=== PATIENT | male | born 1970 | race American Indian/Alaskan Native ===

== ENCOUNTER 2017-04-16 09:49 | Inpatient (IN) | payer MEDICARE, MEDICAID ==
[2017-04-16 09:50] VITALS: BMI 26.4
--- NOTE | 2017-04-16 10:20 | C.PDOC ---
History Of Present Illness 47 y/o male hx of DM, kidney disease, paracentesis, HTN and on dialysis every es.,Th, and Sat. The patient presents to the ED c/o abdominal pain, vomiting, and nausea. The denies blood in the vomit, diarrhea, dizziness, and headaches. Time Seen by Provider: 04/16/17 10:06 Chief Complaint (Nursing): Abdominal Pain History Per: Patient Onset/Duration Of Symptoms: Days Current Symptoms Are (Timing): Still Present Associated Symptoms: Vomiting. denies: Fever, Nausea, Diarrhea Recent travel outside of the [place]: No Additional History Per: Patient Past Medical History Reviewed: Historical Data, Nursing Documentation, Vital Signs Vital Signs: Last Vital Signs Temp 99.4 F 04/16/17 09:50 Pulse 79 04/16/17 10:35 Resp 18 04/16/17 10:35 BP 171/98 H 04/16/17 10:35 Pulse Ox 95 04/16/17 10:49 - Medical History PMH: Anemia, CHF, Depression, HTN, End Stage Renal Disease, Chronic Kidney Disease Denies: Kidney Stones - [facility] Procedures (03/11/17) DRAINAGE OF PERITONEAL CAVITY, PERCUTANEOUS APPROACH (03/11/17) Family History: States: No Known Family Hx - Social History Hx Alcohol Use: No Hx Substance Use: No - Immunization History Hx Tetanus Toxoid Vaccination: No Hx Influenza Vaccination: Yes (01/30) Hx Pneumococcal Vaccination: Yes (01/30) Review Of Systems Except As Marked, All Systems Reviewed And Found Negative. Constitutional: Negative for: Fever, Chills Cardiovascular: Negative for: Chest Pain Respiratory: Negative for: Cough, Shortness of Breath Gastrointestinal: Positive for: Vomiting, Abdominal Pain, Diarrhea Skin: Positive for: Other (hyperpigment scaring on the upper chest and back ). Negative for: Rash Physical Exam - Physical Exam Appears: Non-toxic, Other (mild distress ) Skin: Warm, Dry, Other ( hyperpigmentation and scarring on the upper chest and back and no papule masses ) Head: Atraumatic, Normacephalic Eye(s): bilateral: PERRL Oral Mucosa: Moist Neck: Supple Chest: Symmetrical Cardiovascular: Rhythm Regular Respiratory: Normal Breath Sounds, No Rales, No Rhonchi, No Wheezing Gastrointestinal/Abdominal: Tenderness ( distended and diffusely tender, tympanic to percussion ), No Guarding, No Rebound, Ascites Extremity: Capillary Refill (2<sec.), Other (Av graft good thrill on the left arm ) Neurological/Psych: Oriented x3, Normal Speech, Normal Cognition Gait: Steady ED Course And Treatment - Laboratory Results Result Diagrams: 04/16/17 10:23 12 10:23 O2 Sat by Pulse Oximetry: 95 Medical Decision Making Medical Decision Making: Blood work was administered. US Thorcentesis/Paracentesis was administered. Disposition Discussed With : dwight - Disposition Disposition Time: 12:15 Condition: STABLE Forms: [employer] (Citizen Of [place]) - Clinical Impression Clinical Impression: Ascites - Scribe Statement The provider has reviewed the documentation as recorded by the Scribe Christi Bray All medical record entries made by the Scribe were at my direction and personally dictated by me. I have reviewed the chart and agree that the record accurately reflects my personal performance of the history, physical exam, medical decision making, and the department course for this patient. I have also personally directed, reviewed, and agree with the discharge instructions and disposition. Decision To Admit - Pt Status Changed To: Hospital Disposition Of: Observation - . Bed Request Type: Regular Admitting Physician: Bruce Rivera Patient Diagnosis: Abdominal pain, Abdominal discomfort, Ascites, Renal failure
[2017-04-16 10:27] LABS: BASO # 0.1 K/uL (0.0-0.2); BASO % 0.6 % (0.0-2.0); EOS # 0.1 K/uL (0.0-0.7); EOS % 1.5 % (0.0-4.0); HEMATOCRIT 33.7 % (35.0-51.0); LYMPH # 1.2 K/uL (1.0-4.3); LYMPH % 13.2 % (20.0-40.0); MEAN CELL VOLUME 80.6 fL (80.0-94.0); MEAN CORPUSCULAR HEMOGLOBIN 25.8 pg (27.0-31.0); MEAN PLATELET VOLUME 9.1 fL (7.2-11.7); MONO % 11.3 % (0.0-10.0); RED CELL DISTRIBUTION WIDTH 17.2 % (11.5-14.5); WHITE BLOOD COUNT 9.1 K/uL (4.8-10.8)
[2017-04-16 10:32] LABS: INR 1.2
[2017-04-16 11:09] LABS: ALB/GLOB RATIO 0.8 (1.0-2.1); BILIRUBIN,TOTAL 0.7 mg/dL (0.2-1.3); CALCIUM 7.1 mg/dl (8.6-10.4); MAGNESIUM 1.6 mg/dL (1.6-2.3); POTASSIUM 4.6 mmol/L (3.6-5.2); TOTAL PROTEIN 7.8 g/dL (6.3-8.3)
[2017-04-16] MEDS ORDERED: Nitroglycerin 2% Ointment Foilpak UD TOP ONE (15:20)
--- NOTE | 2017-04-16 16:59 | CP.PCM.CON ---
History of Present Illness - History of Present Illness History of Present Illness: RENAL CONSULT NOTE please call us at [phone] if any qs. 47 y/o male well knwon to me with Type 2 DM, ESRD on hd tts cirrhosis with recurrent ascites needing paracentesis, HTN is admitted with recurrent abdominal pain, vomiting, and nausea along with distension Review of Systems - Review of Systems All systems: reviewed and no additional remarkable complaints except Past Patient History - Past Medical History & Family History Past Medical History?: Yes - Past Social History Smoking Status: Never Smoked - CARDIAC Hx Congestive Heart Failure: Yes Hx Hypertension: Yes - PULMONARY Hx Respiratory Disorders: No - NEUROLOGICAL Hx Neurological Disorder: No - HEENT Hx HEENT Problems: No Hx Blind: Yes (left eye) - RENAL Hx Chronic Kidney Disease: Yes Hx Dialysis: Yes Hx Kidney Stones: No - ENDOCRINE/METABOLIC Hx Endocrine Disorders: Yes Hx Diabetes Mellitus Type 2: Yes - HEMATOLOGICAL/ONCOLOGICAL Hx Anemia: Yes - INTEGUMENTARY Hx Dermatological Problems: Yes Other/Comment: dry patches on skin - MUSCULOSKELETAL/RHEUMATOLOGICAL Hx Falls: No - GASTROINTESTINAL Hx Gastrointestinal Disorders: Yes Other/Comment: Ascites?Claimed "they put a needle and drain some fluid before I was here" - GENITOURINARY/GYNECOLOGICAL Hx Genitourinary Disorders: Yes Other/Comment: ESRD-On HD - PSYCHIATRIC Hx Depression: Yes Hx Substance Use: No - SURGICAL HISTORY Hx Surgeries: Yes Hx Amputation: Yes (left big toe) Hx Arteriovenous Shunt: Yes ([place]) Other/Comment: karina in neck - ANESTHESIA Hx Anesthesia: Yes Hx Anesthesia Reactions: No Hx Malignant Hyperthermia: No Meds Allergies/Adverse Reactions: Allergies Allergy/AdvReac Type Severity Reaction Status Date / Time mushroom Allergy RASH Uncoded 04/16/17 10:00 - Medications Medications: Current Medications Acetaminophen (Tylenol 325mg Tab) 650 mg PO Q6 PRN PRN Reason: Headache Amlodipine Besylate (Norvasc) 10 mg PO DAILY [facility] Calcium Acetate (Phoslo) 1,334 mg PO TID [facility] Clonidine HCl (Catapres) 0.3 mg PO BID [facility] Famotidine (Pepcid) 20 mg PO DAILY [facility] Heparin Sodium (Porcine) (Heparin) 5,000 units SC Q12 [facility] Insulin Aspart (Novolog) 0 unit SC ACHS [facility] PRN Reason: Protocol Insulin Detemir (Levemir) 12 unit SC HS [facility] Isosorbide Mononitrate (Imdur) 120 mg PO DAILY [facility] Nebivolol (Bystolic) 20 mg PO DAILY [facility] Physical Exam - Constitutional Appears: Non-toxic, No Acute Distress - Head Exam Head Exam: NORMAL INSPECTION - Eye Exam Eye Exam: Normal appearance - ENT Exam ENT Exam: Mucous Membranes Moist - Neck Exam Neck exam: Positive for: Normal Inspection - Respiratory Exam Respiratory Exam: NORMAL BREATHING PATTERN - Cardiovascular Exam Cardiovascular Exam: +S1, +S2 - GI/Abdominal Exam GI & Abdominal Exam: Distended, Normal Bowel Sounds, Soft - Extremities Exam Extremities exam: Positive for: normal inspection - Neurological Exam Neurological exam: Alert, Oriented x3 - Psychiatric Exam Psychiatric exam: Flat Affect - Skin Skin Exam: Dry Results - Vital Signs Recent Vital Signs: Last Vital Signs Temp 98.1 F 04/16/17 14:28 Pulse 76 04/16/17 14:28 Resp 20 04/16/17 14:28 BP 196/107 H 04/16/17 14:28 Pulse Ox 95 04/16/17 14:28 - Labs Result Diagrams: 04/16/17 10:23 04/16/17 10:23 Labs: Laboratory Results - last 24 hr 04/16/17 04/16/17 04/16/17 10:23 10:23 10:23 WBC 9.1 RBC 4.18 L Hgb 10.8 L Hct 33.7 L MCV 80.6 MCH 25.8 L MCHC 32.0 L RDW 17.2 H Plt Count 238 MPV 9.1 Neut % (Auto) 73.4 Lymph % (Auto) 13.2 L [place] % (Auto) 11.3 H Eos % (Auto) 1.5 Baso % (Auto) 0.6 Neut # 6.7 Lymph # 1.2 [place] # 1.0 H Eos # 0.1 Baso # 0.1 PT 13.9 H INR 1.2 Sodium 136 Potassium 4.6 Chloride 90 L Carbon Dioxide 34 H Anion Gap 16 BUN 48 H Creatinine 7.9 H* Est GFR ( Amer) 9 Est GFR (Non-Af Amer) 7 POC Glucose (mg/dL) Random Glucose 298 H Calcium 7.1 L Magnesium 1.6 Total Bilirubin 0.7 AST 14 L ALT 21 Alkaline Phosphatase 296 H Total Protein 7.8 Albumin 3.5 Globulin 4.3 H Albumin/Globulin Ratio 0.8 L 04/16/17 04/16/17 14:52 16:25 WBC RBC Hgb Hct MCV MCH MCHC RDW Plt Count MPV Neut % (Auto) Lymph % (Auto) [place] % (Auto) Eos % (Auto) Baso % (Auto) Neut # Lymph # [place] # Eos # Baso # PT INR Sodium Potassium Chloride Carbon Dioxide Anion Gap BUN Creatinine Est GFR ( Amer) Est GFR (Non-Af Amer) POC Glucose (mg/dL) 229 H 222 H Random Glucose Calcium Magnesium Total Bilirubin AST ALT Alkaline Phosphatase Total Protein Albumin Globulin Albumin/Globulin Ratio Assessment & Plan - Assessment and Plan (Free Text) Plan: ESRD/HTN/DM/cirrhosis/ascites/abdominal pain hd tts, will do today per schedule lytes reviewed anemia stable epo as needed htn resume home meds sec hyperpth: resume binders, monitor phos levels
[2017-04-16] MEDS: (Novolog) Insulin Aspart, Recombinant 100 u/ml 10 ml vial SC SCH ×2 (18:30→23:59)
[2017-04-16] MEDS: Insulin Detemir 100 units/ml Vial (Levemir) SC SCH (23:50)
--- NOTE | 2017-04-17 06:31 | CP.PCM.HP ---
History of Present Illness - History of Present Illness History of Present Illness: CC: abdominal distention, shortness of breath, generalized weakness HPI: 47 y/o male well knwon to me with hx of Type 2 DM, kidney disease , paracentesis, HTN and on dialysis every es.,Th, and Sat. The patient presents to the ED c/o abdominal pain, vomiting, and nausea. The denies blood in the vomit, diarrhea, dizziness, and headaches.pt is non complaint with his diet, medications, he was admitted with c/o nause, vomitting, abdominal paina nd distention associated with shortnes of breath. gustavo any chest pain Present on Admission - Present on Admission Any Indicators Present on Admission: Yes Past Patient History - Past Medical History & Family History Past Medical History?: Yes - Past Social History Smoking Status: Never Smoked - CARDIAC Hx Congestive Heart Failure: Yes Hx Hypertension: Yes - PULMONARY Hx Respiratory Disorders: No - NEUROLOGICAL Hx Neurological Disorder: No - HEENT Hx HEENT Problems: No Hx Blind: Yes (left eye) - RENAL Hx Chronic Kidney Disease: Yes Hx Dialysis: Yes Hx Kidney Stones: No - ENDOCRINE/METABOLIC Hx Endocrine Disorders: Yes Hx Diabetes Mellitus Type 2: Yes - HEMATOLOGICAL/ONCOLOGICAL Hx Anemia: Yes - INTEGUMENTARY Hx Dermatological Problems: Yes Other/Comment: dry patches on skin - MUSCULOSKELETAL/RHEUMATOLOGICAL Hx Falls: No - GASTROINTESTINAL Hx Gastrointestinal Disorders: Yes Other/Comment: Ascites?Claimed "they put a needle and drain some fluid before I was here" - GENITOURINARY/GYNECOLOGICAL Hx Genitourinary Disorders: Yes Other/Comment: ESRD-On HD - PSYCHIATRIC Hx Depression: Yes Hx Substance Use: No - SURGICAL HISTORY Hx Surgeries: Yes Hx Amputation: Yes (left big toe) Hx Arteriovenous Shunt: Yes ([place]) Other/Comment: karina in neck - ANESTHESIA Hx Anesthesia: Yes Hx Anesthesia Reactions: No Hx Malignant Hyperthermia: No Meds Allergies/Adverse Reactions: Allergies Allergy/AdvReac Type Severity Reaction Status Date / Time mushroom Allergy RASH Uncoded 04/16/17 10:00 Physical Exam - Constitutional Additional comments: middle aged male in mild distress - ENT Exam ENT Exam: Mucous Membranes Moist, Normal Exam - Respiratory Exam Respiratory Exam: Decreased Breath Sounds, Rales - Cardiovascular Exam Cardiovascular Exam: REGULAR RHYTHM - GI/Abdominal Exam GI & Abdominal Exam: Distended - Rectal Exam Rectal Exam: Deferred - Extremities Exam Extremities exam: Positive for: pedal edema - Back Exam Back exam: NORMAL INSPECTION - Psychiatric Exam Psychiatric exam: Normal Affect, Normal Mood - Skin Additional comments: chronic changes with extremely dry skin and scabs but no open wounds Results - Vital Signs Recent Vital Signs: Last Vital Signs Temp 98.1 F 04/16/17 23:55 Pulse 76 04/17/17 04:00 Resp 20 04/16/17 23:55 BP 167/94 H 04/17/17 04:00 Pulse Ox 99 04/16/17 23:55 - Labs Result Diagrams: 04/16/17 10:23 04/16/17 10:23 Labs: Laboratory Results - last 24 hr 04/16/17 04/16/17 04/16/17 10:23 10:23 10:23 WBC 9.1 RBC 4.18 L Hgb 10.8 L Hct 33.7 L MCV 80.6 MCH 25.8 L MCHC 32.0 L RDW 17.2 H Plt Count 238 MPV 9.1 Neut % (Auto) 73.4 Lymph % (Auto) 13.2 L [place] % (Auto) 11.3 H Eos % (Auto) 1.5 Baso % (Auto) 0.6 Neut # 6.7 Lymph # 1.2 [place] # 1.0 H Eos # 0.1 Baso # 0.1 PT 13.9 H INR 1.2 Sodium 136 Potassium 4.6 Chloride 90 L Carbon Dioxide 34 H Anion Gap 16 BUN 48 H Creatinine 7.9 H* Est GFR ( Amer) 9 Est GFR (Non-Af Amer) 7 POC Glucose (mg/dL) Random Glucose 298 H Calcium 7.1 L Magnesium 1.6 Total Bilirubin 0.7 AST 14 L ALT 21 Alkaline Phosphatase 296 H Total Protein 7.8 Albumin 3.5 Globulin 4.3 H Albumin/Globulin Ratio 0.8 L 04/16/17 04/16/17 14:52 16:25 WBC RBC Hgb Hct MCV MCH MCHC RDW Plt Count MPV Neut % (Auto) Lymph % (Auto) [place] % (Auto) Eos % (Auto) Baso % (Auto) Neut # Lymph # [place] # Eos # Baso # PT INR Sodium Potassium Chloride Carbon Dioxide Anion Gap BUN Creatinine Est GFR ( Amer) Est GFR (Non-Af Amer) POC Glucose (mg/dL) 229 H 222 H Random Glucose Calcium Magnesium Total Bilirubin AST ALT Alkaline Phosphatase Total Protein Albumin Globulin Albumin/Globulin Ratio Assessment & Plan (1) CKD, patient preferred modality in-center hemodialysis Status: Acute (2) Abdominal discomfort Status: Acute (3) Ascites Status: Acute (4) Renal failure Status: Acute (5) Alcoholic cirrhosis of liver with ascites Status: Acute
--- NOTE | 2017-04-17 06:34 | CP.PCM.PN ---
Subjective - Date & Time of Evaluation Date of Evaluation: 04/17/17 Time of Evaluation: 09:00 - Subjective Subjective: Pt seen and evalauted at bedside, more alert. less short of breath, less edema, positive ascites Objective - Vital Signs/Intake and Output Vital Signs (last 24 hours): Temp Pulse Resp BP Pulse Ox 98.1 F 76 20 167/94 H 99 04/16/17 23:55 04/17/17 04:00 04/16/17 23:55 04/17/17 04:00 04/16/17 23:55 - Medications Medications: Current Medications Acetaminophen (Tylenol 325mg Tab) 650 mg PO Q6 PRN PRN Reason: Headache Last Admin: 04/17/17 03:56 Dose: 650 mg Amlodipine Besylate (Norvasc) 10 mg PO DAILY [facility] Calcium Acetate (Phoslo) 1,334 mg PO TID [facility] Last Admin: 04/16/17 18:31 Dose: 1,334 mg Clonidine HCl (Catapres) 0.3 mg PO BID [facility] Last Admin: 04/16/17 22:22 Dose: 0.3 mg Famotidine (Pepcid) 20 mg PO DAILY [facility] Heparin Sodium (Porcine) (Heparin) 5,000 units SC Q12 [facility] Last Admin: 04/16/17 23:49 Dose: 5,000 units Insulin Aspart (Novolog) 0 unit SC ACHS [facility] PRN Reason: Protocol Last Admin: 04/16/17 23:59 Dose: Not Given Insulin Detemir (Levemir) 12 unit SC HS [facility] Last Admin: 04/16/17 23:50 Dose: 12 unit Isosorbide Mononitrate (Imdur) 120 mg PO DAILY [facility] Nebivolol (Bystolic) 20 mg PO DAILY [facility] - Labs Labs: 04/16/17 10:23 04/16/17 10:23 PT 13.9 SECONDS (9.7-12.2) H 04/16/17 10:23 INR 1.2 04/16/17 10:23 - Constitutional Appears: No Acute Distress - Head Exam Head Exam: ATRAUMATIC, NORMAL INSPECTION, NORMOCEPHALIC - Respiratory Exam Respiratory Exam: Clear to Ausculation Bilateral, NORMAL BREATHING PATTERN - Cardiovascular Exam Cardiovascular Exam: REGULAR RHYTHM, +S1, +S2. absent: Murmur - GI/Abdominal Exam GI & Abdominal Exam: Soft, Normal Bowel Sounds. absent: Tenderness Assessment and Plan (1) CKD, patient preferred modality in-center hemodialysis Status: Acute (2) Abdominal discomfort Status: Acute (3) Ascites Status: Acute (4) Renal failure Status: Acute (5) Alcoholic cirrhosis of liver with ascites Status: Acute
[2017-04-17] MEDS: (Novolog) Insulin Aspart, Recombinant 100 u/ml 10 ml vial SC SCH ×4 (08:30→22:28)
[2017-04-17] MEDS: Insulin Detemir 100 units/ml Vial (Levemir) SC SCH (22:00)
[2017-04-18] MEDS: (Novolog) Insulin Aspart, Recombinant 100 u/ml 10 ml vial SC SCH ×4 (08:30→22:03)
--- NOTE | 2017-04-18 11:41 | PCM.SURG1 ---
Surgeon's Initial Post Op Note - Surgeon's Notes Surgeon: Bi Sevilla MD [employer] Salesperson: NONE Type of Anesthesia: Local Pre-Operative Diagnosis: Ascites Operative Findings: US showed moderate amount of ascites with debris Post-Operative Diagnosis: Ascites Operation Performed: US guided paracentesis. Specimen/Specimens Removed: 4 liters of straw colored fluid Estimated Blood Loss: EBL {In ML}: 0 Blood Products Given: N/A Drains Used: No Drains Post-Op Condition: Fair Date of Surgery/Procedure: 04/18/17 Time of Surgery/Procedure: 11:35
--- NOTE | 2017-04-18 12:04 | US ---
Date of Procedure: 04/18/2017 PROCEDURE: Ultrasound-guided paracentesis, CPT 68055 Medications: 7 cc 1% Lidocaine HISTORY: Ascites, abdominal pain, cirrhosis TECHNIQUE: Following informed consent , the patient was placed supine on the stretcher and the site was marked. A limited abdominal ultrasound was performed that showed a large amount of intra-abdominal fluid. Procedural time out was called and the Pt's abdomen was marked and prepped and draped in the usual sterile fashion. Ultrasound-guided large volume paracentesis performed. A total of 4 liters of straw colored fluid was removed without complication. IMPRESSION: Ultrasound-guided large volume paracentesis.
--- NOTE | 2017-04-18 16:08 | CP.PCM.PN ---
Subjective - Date & Time of Evaluation Date of Evaluation: 04/18/17 Time of Evaluation: 16:02 - Subjective Subjective: Follow up Nephrology Consultation Note Assessment: Stable Diabetic chronic Kidney Disease (E11.22) Hypertensive Chronic Kidney Disease (I12.0) End stage renal disease (N18.6) dependence on hemodialysis (Z99.2) (TTS) via AVF Anemia (D64.9), Hyperphosphatemia (E83.39), Secondary Hyperparathyroidism (E21.1 ), HTN (I12.0) Cirrhosis with ascites s/p drainage by IR Plan: For dialysis tomorrow as ordered. Continue with Nephrovite 1 tab/day. Hb okay. no need for LUIS at present BP control with meds as ordered. had tendency for hyperkalemia in past hence hesistant for ACEI/ARB Glycemic control, Dialysis consistent diet Further work up/management as per primary team Dose meds/antibiotics (if needed) for ESRD status. Avoid fleets enema/magnesium based laxatives. Thanks for allowing me to participate in care of your patient. Will follow patient with you. Please call if any Qs Dr Leonardo Moody Office: [phone] Subjective: Noted events overnight. Patients feels better. Denies chest pain, palpitation, shortness of breath, leg swelling. c/o abdomen pain. swelling better. s/p drainage by IR Physical Examination: General Appearance: Comfortable, in no acute respiratory distress, co- operative. Vitals reviewed and noted as below Lungs: Normal respiratory rate/effort. Breath sounds bilateral equal and clear Heart: Normal rate. s1s2 normal. No rub or gallop. Extremities: Ankle edema none. Neurological: Patient is alert, awake and oriented to person, place and time. No focal deficit. Strength bilateral appropriate and equal Skin: Warm and dry. Normal turgor. No rash. Palpitation: Normal elasticity for age. chronic skin lesions in legs with hyperpigmentation Abdomen: Abdomen is soft. Bowel sounds +. There is mild abdominal tenderness Rid mid quad, no guarding/rigidity or organomegaly : kidney or bladder not palpable. Access: AVF Labs/imaging reviewed. Past medical history, past surgical history, family history, social history, allergy reviewed Objective - Vital Signs/Intake and Output Vital Signs (last 24 hours): Temp Pulse Resp BP Pulse Ox 98.8 F 64 18 154/77 H 95 04/18/17 10:25 04/18/17 14:07 04/18/17 11:30 04/18/17 14:07 04/18/17 07:53 - Medications Medications: Current Medications Acetaminophen (Tylenol 325mg Tab) 650 mg PO Q6 PRN PRN Reason: Headache Last Admin: 04/17/17 03:56 Dose: 650 mg Amlodipine Besylate (Norvasc) 10 mg PO DAILY [facility] Last Admin: 04/18/17 10:26 Dose: 10 mg Calcium Acetate (Phoslo) 1,334 mg PO TID [facility] Last Admin: 04/18/17 14:07 Dose: Not Given Clonidine HCl (Catapres) 0.3 mg PO Q8 [facility] Last Admin: 04/18/17 14:08 Dose: 0.3 mg Famotidine (Pepcid) 20 mg PO DAILY [facility] Last Admin: 04/18/17 10:26 Dose: 20 mg Heparin Sodium (Porcine) (Heparin) 5,000 units SC Q12 [facility] Last Admin: 04/18/17 10:31 Dose: Not Given Insulin Aspart (Novolog) 0 unit SC ACHS [facility] PRN Reason: Protocol Last Admin: 04/18/17 12:42 Dose: 2 unit Insulin Detemir (Levemir) 12 unit SC HS [facility] Last Admin: 04/17/17 22:00 Dose: 12 unit Isosorbide Mononitrate (Imdur) 120 mg PO DAILY [facility] Last Admin: 04/18/17 10:26 Dose: 120 mg Nebivolol (Bystolic) 20 mg PO DAILY [facility] Last Admin: 04/18/17 10:26 Dose: 20 mg - Labs Labs: 04/16/17 10:23 04/16/17 10:23 PT 13.9 SECONDS (9.7-12.2) H 04/16/17 10:23 INR 1.2 04/16/17 10:23
[2017-04-18] MEDS: Insulin Detemir 100 units/ml Vial (Levemir) SC SCH (22:03)
--- NOTE | 2017-04-18 22:30 | CP.PCM.PN ---
Subjective - Date & Time of Evaluation Date of Evaluation: 04/18/17 Time of Evaluation: 20:30 - Subjective Subjective: Pt seen and examined, is afebrile, no shortness of breath, no chest pain. s/p paracentesis Objective - Vital Signs/Intake and Output Vital Signs (last 24 hours): Temp Pulse Resp BP Pulse Ox 98 F 70 20 169/78 H 97 04/18/17 15:47 04/18/17 22:00 04/18/17 22:00 04/18/17 22:00 04/18/17 15:47 - Medications Medications: Current Medications Acetaminophen (Tylenol 325mg Tab) 650 mg PO Q6 PRN PRN Reason: Headache Last Admin: 04/17/17 03:56 Dose: 650 mg Amlodipine Besylate (Norvasc) 10 mg PO DAILY [facility] Last Admin: 04/18/17 10:26 Dose: 10 mg Calcium Acetate (Phoslo) 1,334 mg PO TID [facility] Last Admin: 04/18/17 17:46 Dose: 1,334 mg Clonidine HCl (Catapres) 0.3 mg PO Q8 [facility] Last Admin: 04/18/17 22:02 Dose: 0.3 mg Famotidine (Pepcid) 20 mg PO DAILY [facility] Last Admin: 04/18/17 10:26 Dose: 20 mg Heparin Sodium (Porcine) (Heparin) 5,000 units SC Q12 [facility] Last Admin: 04/18/17 22:02 Dose: Not Given Insulin Aspart (Novolog) 0 unit SC ACHS [facility] PRN Reason: Protocol Last Admin: 04/18/17 22:03 Dose: Not Given Insulin Detemir (Levemir) 12 unit SC HS [facility] Last Admin: 04/18/17 22:03 Dose: 12 unit Isosorbide Mononitrate (Imdur) 120 mg PO DAILY [facility] Last Admin: 04/18/17 10:26 Dose: 120 mg Nebivolol (Bystolic) 20 mg PO DAILY [facility] Last Admin: 04/18/17 10:26 Dose: 20 mg - Labs Labs: 04/16/17 10:23 04/16/17 10:23 PT 13.9 SECONDS (9.7-12.2) H 04/16/17 10:23 INR 1.2 04/16/17 10:23 - Constitutional Appears: No Acute Distress - Head Exam Head Exam: ATRAUMATIC, NORMAL INSPECTION, NORMOCEPHALIC - Eye Exam Eye Exam: EOMI, Normal appearance, PERRL Pupil Exam: NORMAL ACCOMODATION, PERRL - Respiratory Exam Respiratory Exam: Clear to Ausculation Bilateral, NORMAL BREATHING PATTERN - Cardiovascular Exam Cardiovascular Exam: REGULAR RHYTHM, +S1, +S2. absent: Murmur - GI/Abdominal Exam GI & Abdominal Exam: Distended - Rectal Exam Rectal Exam: Deferred Assessment and Plan (1) CKD, patient preferred modality in-center hemodialysis Assessment & Plan: Plan: For dialysis tomorrow as ordered. Continue with Nephrovite 1 tab/day. Hb okay. no need for LUIS at present BP control with meds as ordered. had tendency for hyperkalemia in past hence hesistant for ACEI/ARB Glycemic control, Dialysis consistent diet Further work up/management as per primary team Dose meds/antibiotics (if needed) for ESRD status. Avoid fleets enema/magnesium based laxatives. Status: Acute (2) Abdominal discomfort Status: Acute (3) Ascites Status: Acute (4) Renal failure Status: Acute (5) Alcoholic cirrhosis of liver with ascites Status: Acute
[2017-04-19] MEDS: (Novolog) Insulin Aspart, Recombinant 100 u/ml 10 ml vial SC SCH ×4 (08:54→22:00)
--- NOTE | 2017-04-19 15:55 | CP.PCM.PN ---
Subjective - Date & Time of Evaluation Date of Evaluation: 04/19/17 Time of Evaluation: 15:54 - Subjective Subjective: Follow up Nephrology Consultation Note Assessment: Stable Diabetic chronic Kidney Disease (E11.22) Hypertensive Chronic Kidney Disease (I12.0) End stage renal disease (N18.6) dependence on hemodialysis (Z99.2) (TTS) via AVF Anemia (D64.9), Hyperphosphatemia (E83.39), Secondary Hyperparathyroidism (E21.1 ), HTN (I12.0) Cirrhosis with ascites s/p drainage by IR Plan: For dialysis today as ordered. Continue with Nephrovite 1 tab/day. Hb okay. no need for LUIS at present BP control with meds as ordered. had tendency for hyperkalemia in past hence hesistant for ACEI/ARB. added hydralazine 50 mg bid Glycemic control, Dialysis consistent diet Further work up/management as per primary team Dose meds/antibiotics (if needed) for ESRD status. Avoid fleets enema/magnesium based laxatives. Thanks for allowing me to participate in care of your patient. Will follow patient with you. Please call if any Qs Dr Leonardo Moody Office: [phone] Subjective: Noted events overnight. Patients feels better. Denies chest pain, palpitation, shortness of breath, leg swelling. c/o abdomen pain. swelling better. s/p drainage by IR Physical Examination: General Appearance: Comfortable, in no acute respiratory distress, co- operative. Vitals reviewed and noted as below Lungs: Normal respiratory rate/effort. Breath sounds bilateral equal and clear Heart: Normal rate. s1s2 normal. No rub or gallop. Extremities: Ankle edema none. Neurological: Patient is alert, awake and oriented to person, place and time. No focal deficit. Strength bilateral appropriate and equal Skin: Warm and dry. Normal turgor. No rash. Palpitation: Normal elasticity for age. chronic skin lesions in legs with hyperpigmentation Abdomen: Abdomen is soft. Bowel sounds +. There is mild abdominal tenderness Rid mid quad, no guarding/rigidity or organomegaly : kidney or bladder not palpable. Access: AVF Labs/imaging reviewed. Past medical history, past surgical history, family history, social history, allergy reviewed Objective - Vital Signs/Intake and Output Vital Signs (last 24 hours): Temp Pulse Resp BP Pulse Ox 97.9 F 62 16 182/105 H 100 04/19/17 13:45 04/19/17 13:45 04/19/17 13:45 04/19/17 15:35 04/19/17 13:45 Intake and Output: 04/19/17 04/19/17 06:59 18:59 Intake Total 240 Balance 240 - Medications Medications: Current Medications Acetaminophen (Tylenol 325mg Tab) 650 mg PO Q6 PRN PRN Reason: Headache Last Admin: 04/19/17 03:32 Dose: 650 mg Amlodipine Besylate (Norvasc) 10 mg PO DAILY [facility] Last Admin: 04/19/17 10:30 Dose: Not Given Calcium Acetate (Phoslo) 1,334 mg PO TID [facility] Last Admin: 04/19/17 13:20 Dose: Not Given Clonidine HCl (Catapres) 0.3 mg PO Q8 [facility] Last Admin: 04/19/17 13:20 Dose: Not Given Famotidine (Pepcid) 20 mg PO DAILY [facility] Last Admin: 04/19/17 10:23 Dose: 20 mg Heparin Sodium (Porcine) (Heparin) 5,000 units SC Q12 [facility] Last Admin: 04/19/17 10:23 Dose: 5,000 units Hydralazine HCl (Apresoline) 50 mg PO BID [facility] Insulin Aspart (Novolog) 0 unit SC ACHS [facility] PRN Reason: Protocol Last Admin: 04/19/17 11:47 Dose: Not Given Insulin Detemir (Levemir) 12 unit SC HS [facility] Last Admin: 04/18/17 22:03 Dose: 12 unit Isosorbide Mononitrate (Imdur) 120 mg PO DAILY [facility] Last Admin: 04/19/17 10:29 Dose: Not Given Nebivolol (Bystolic) 20 mg PO DAILY [facility] Last Admin: 04/19/17 10:29 Dose: Not Given Vitamin B Complex/Vit C/Folic Acid (Nephro-Brooks) 1 tab PO 0800 [facility] - Labs Labs: 04/16/17 10:23 04/16/17 10:23 PT 13.9 SECONDS (9.7-12.2) H 04/16/17 10:23 INR 1.2 04/16/17 10:23
--- NOTE | 2017-04-19 21:47 | CP.PCM.PN ---
Subjective - Date & Time of Evaluation Date of Evaluation: 04/19/17 Time of Evaluation: 20:00 - Subjective Subjective: Patients feels better. Denies chest pain, palpitation, shortness of breath, leg swelling. c/o abdomen pain. swelling better. s/p drainage by IR Objective - Vital Signs/Intake and Output Vital Signs (last 24 hours): Temp Pulse Resp BP Pulse Ox 98 F 67 16 196/110 H 100 04/19/17 16:45 04/19/17 16:45 04/19/17 16:45 04/19/17 16:45 04/19/17 16:45 - Medications Medications: Current Medications Acetaminophen (Tylenol 325mg Tab) 650 mg PO Q6 PRN PRN Reason: Headache Last Admin: 04/19/17 03:32 Dose: 650 mg Amlodipine Besylate (Norvasc) 10 mg PO DAILY [facility] Last Admin: 04/19/17 10:30 Dose: Not Given Calcium Acetate (Phoslo) 1,334 mg PO TID [facility] Last Admin: 04/19/17 17:58 Dose: 1,334 mg Clonidine HCl (Catapres) 0.3 mg PO Q8 [facility] Last Admin: 04/19/17 16:07 Dose: 0.3 mg Famotidine (Pepcid) 20 mg PO DAILY [facility] Last Admin: 04/19/17 10:23 Dose: 20 mg Heparin Sodium (Porcine) (Heparin) 5,000 units SC Q12 [facility] Last Admin: 04/19/17 10:23 Dose: 5,000 units Hydralazine HCl (Apresoline) 50 mg PO BID [facility] Last Admin: 04/19/17 17:00 Dose: 50 mg Insulin Aspart (Novolog) 0 unit SC ACHS [facility] PRN Reason: Protocol Last Admin: 04/19/17 17:30 Dose: Not Given Insulin Detemir (Levemir) 12 unit SC HS [facility] Last Admin: 04/18/17 22:03 Dose: 12 unit Isosorbide Mononitrate (Imdur) 120 mg PO DAILY [facility] Last Admin: 04/19/17 10:29 Dose: Not Given Nebivolol (Bystolic) 20 mg PO DAILY [facility] Last Admin: 04/19/17 10:29 Dose: Not Given Vitamin B Complex/Vit C/Folic Acid (Nephro-Brooks) 1 tab PO 0800 [facility] - Labs Labs: 04/16/17 10:23 04/16/17 10:23 PT 13.9 SECONDS (9.7-12.2) H 04/16/17 10:23 INR 1.2 04/16/17 10:23 Assessment and Plan (1) CKD, patient preferred modality in-center hemodialysis Status: Acute (2) Abdominal discomfort Status: Acute (3) Ascites Status: Acute (4) Renal failure Status: Acute (5) Alcoholic cirrhosis of liver with ascites Status: Acute
[2017-04-19] MEDS: Insulin Detemir 100 units/ml Vial (Levemir) SC SCH (22:59)
[2017-04-20] MEDS: (Novolog) Insulin Aspart, Recombinant 100 u/ml 10 ml vial SC SCH ×3 (07:30→17:52)
[2017-04-20] MEDS ORDERED: Multivitamin Vitamin B Complex (Nephro-Vite) Tab PO SCH (08:00)
--- NOTE | 2017-04-20 11:06 | CP.PCM.PN ---
Subjective - Date & Time of Evaluation Date of Evaluation: 04/20/17 Time of Evaluation: 11:05 - Subjective Subjective: Follow up Nephrology Consultation Note Assessment: Stable Diabetic chronic Kidney Disease (E11.22) Hypertensive Chronic Kidney Disease (I12.0) End stage renal disease (N18.6) dependence on hemodialysis (Z99.2) (TTS) via AVF Anemia (D64.9), Hyperphosphatemia (E83.39), Secondary Hyperparathyroidism (E21.1 ), HTN (I12.0) Cirrhosis with ascites s/p drainage by IR Plan: For dialysis tomorrow as ordered. Continue with Nephrovite 1 tab/day. no acute need for HD today Hb okay. no need for LUIS at present BP control with meds as ordered. had tendency for hyperkalemia in past hence hesistant for ACEI/ARB/RAAS blockade. Increased hydralazine 100 mg bid Glycemic control, Dialysis consistent diet Further work up/management as per primary team Dose meds/antibiotics (if needed) for ESRD status. Avoid fleets enema/magnesium based laxatives. Thanks for allowing me to participate in care of your patient. Will follow patient with you. Please call if any Qs Dr Leonardo Moody Office: [phone] Subjective: Noted events overnight. Patients feels better. Denies chest pain, palpitation, shortness of breath, leg swelling. no abdomen pain. s/p drainage by IR c/o nausea Physical Examination: General Appearance: Comfortable, in no acute respiratory distress, co- operative. Vitals reviewed and noted as below Lungs: Normal respiratory rate/effort. Breath sounds bilateral equal and clear except few basal crackles Heart: Normal rate. s1s2 normal. No rub or gallop. Extremities: Ankle edema none. Neurological: Patient is alert, awake and oriented to person, place and time. No focal deficit. Strength bilateral appropriate and equal Skin: Warm and dry. Normal turgor. No rash. Palpitation: Normal elasticity for age. chronic skin lesions in legs with hyperpigmentation Abdomen: Abdomen is soft. Bowel sounds +. There is mild abdominal tenderness Rid mid quad, no guarding/rigidity or organomegaly : kidney or bladder not palpable. Access: AVF Labs/imaging reviewed. Past medical history, past surgical history, family history, social history, allergy reviewed Objective - Vital Signs/Intake and Output Vital Signs (last 24 hours): Temp Pulse Resp BP Pulse Ox 98.5 F 64 20 173/89 H 94 L 04/20/17 08:29 04/20/17 09:02 04/20/17 08:29 04/20/17 09:02 04/20/17 08:29 - Medications Medications: Current Medications Acetaminophen (Tylenol 325mg Tab) 650 mg PO Q6 PRN PRN Reason: Headache Last Admin: 04/19/17 03:32 Dose: 650 mg Amlodipine Besylate (Norvasc) 10 mg PO DAILY [facility] Last Admin: 04/20/17 09:03 Dose: 10 mg Calcium Acetate (Phoslo) 1,334 mg PO TID [facility] Last Admin: 04/20/17 09:03 Dose: 1,334 mg Clonidine HCl (Catapres) 0.3 mg PO Q8 [facility] Last Admin: 04/20/17 06:12 Dose: 0.3 mg Famotidine (Pepcid) 20 mg PO DAILY [facility] Last Admin: 04/20/17 09:03 Dose: 20 mg Hydralazine HCl (Apresoline) 100 mg PO BID [facility] Insulin Aspart (Novolog) 0 unit SC ACHS [facility] PRN Reason: Protocol Last Admin: 04/20/17 07:30 Dose: Not Given Insulin Detemir (Levemir) 12 unit SC HS [facility] Last Admin: 04/19/17 22:59 Dose: 12 unit Isosorbide Mononitrate (Imdur) 120 mg PO DAILY [facility] Last Admin: 04/20/17 09:03 Dose: 120 mg Nebivolol (Bystolic) 20 mg PO DAILY [facility] Last Admin: 04/20/17 09:03 Dose: 20 mg Vitamin B Complex/Vit C/Folic Acid (Nephro-Brooks) 1 tab PO 0800 [facility] Last Admin: 04/20/17 09:00 Dose: 1 tab - Labs Labs: 04/16/17 10:23 04/16/17 10:23 PT 13.9 SECONDS (9.7-12.2) H 04/16/17 10:23 INR 1.2 04/16/17 10:23
--- NOTE | 2017-04-20 14:24 | CP.PCM.PN ---
Subjective - Date & Time of Evaluation Date of Evaluation: 04/20/17 Time of Evaluation: 14:24 - Subjective Subjective: PATIENT WAS ADMITTED FOR ASCITES AND RENAL FAILURE; ABDOMEN STILL DISSENTEDBUT DECREASE SIGNIFICANTLY IN SIZE; PATIENT WAS COMPLAINING OF FEELING NAUSEOUS; DENIES ABDOMINAL PAIN SOB OR CHEST PAIN NO SIGN OF DISTRESS NOTED Objective - Vital Signs/Intake and Output Vital Signs (last 24 hours): Temp Pulse Resp BP Pulse Ox 98.5 F 61 20 144/78 94 L 04/20/17 08:29 04/20/17 13:10 04/20/17 08:29 04/20/17 13:10 04/20/17 08:29 - Medications Medications: Current Medications Acetaminophen (Tylenol 325mg Tab) 650 mg PO Q6 PRN PRN Reason: Headache Last Admin: 04/19/17 03:32 Dose: 650 mg Amlodipine Besylate (Norvasc) 10 mg PO DAILY [facility] Last Admin: 04/20/17 09:03 Dose: 10 mg Calcium Acetate (Phoslo) 1,334 mg PO TID [facility] Last Admin: 04/20/17 13:12 Dose: 1,334 mg Clonidine HCl (Catapres) 0.3 mg PO Q8 [facility] Last Admin: 04/20/17 13:12 Dose: 0.3 mg Famotidine (Pepcid) 20 mg PO DAILY [facility] Last Admin: 04/20/17 09:03 Dose: 20 mg Hydralazine HCl (Apresoline) 100 mg PO BID [facility] Last Admin: 04/20/17 13:11 Dose: 100 mg Insulin Aspart (Novolog) 0 unit SC ACHS [facility] PRN Reason: Protocol Last Admin: 04/20/17 11:52 Dose: Not Given Insulin Detemir (Levemir) 12 unit SC HS [facility] Last Admin: 04/19/17 22:59 Dose: 12 unit Isosorbide Mononitrate (Imdur) 120 mg PO DAILY [facility] Last Admin: 04/20/17 09:03 Dose: 120 mg Nebivolol (Bystolic) 20 mg PO DAILY [facility] Last Admin: 04/20/17 09:03 Dose: 20 mg Vitamin B Complex/Vit C/Folic Acid (Nephro-Brooks) 1 tab PO 0800 [facility] Last Admin: 04/20/17 09:00 Dose: 1 tab - Labs Labs: 04/16/17 10:23 04/16/17 10:23 PT 13.9 SECONDS (9.7-12.2) H 04/16/17 10:23 INR 1.2 04/16/17 10:23 - Head Exam Head Exam: NORMOCEPHALIC - Eye Exam Pupil Exam: PERRL - Neck Exam Neck Exam: Full ROM - Respiratory Exam Respiratory Exam: Clear to Ausculation Bilateral - Cardiovascular Exam Cardiovascular Exam: +S1, +S2 - GI/Abdominal Exam GI & Abdominal Exam: Normal Bowel Sounds Additional comments: ABDOMINAL SOFT AND DISTENDED - Extremities Exam Extremities Exam: Normal Capillary Refill Assessment and Plan - Assessment and Plan (Free Text) Assessment: A/P PATIENT IS SEEN AND EXAMINED AT THE BEDSIDE; BLOOD SUGAR WAS [address] WITH PO INTAKE; BP WAS ELEVATED REPEAT POST BP MEDS GIVEN IS 148/89 ABDONIAL SOFT NO DRAINAGE NOTED DISCUSS WITH DR CRAWFORD WHO AGREE AND CLEAR THE PATIENT FOR DC FOLLOW UP WITH DR CRAWFORD IN A WEEK AT HIS OFFICE ----CALL FOR APPOINTMENT CONTINUE TAKING YOUR HOME MED PER MED RECS CONTINUE HEMODIALYSIS PER USUAL SCHEDULE FLUID RESTRICTION TO [address] CRAWFORD OR GO TO EMERGENCY ROOM IF SYMPTOMS RETURN OR WORSENING DISCUSS WITH PATIENT WHO AGREE AND VERBALIZED UNDERSTANDING
[2017-04-20 16:07] VITALS: BP 147/72; PULSE 63; RESP 18; TEMP 97.6; O2SAT 99
--- NOTE | 2017-04-20 22:48 | CP.PCM.DIS ---
Provider - Provider Date of Admission: 04/16/17 16:06 Attending physician: Bruce Rivera MD Time Spent in preparation of Discharge (in minutes): 45 Diagnosis - Discharge Diagnosis (1) CKD, patient preferred modality in-center hemodialysis Status: Acute (2) Abdominal discomfort Status: Acute (3) Ascites Status: Acute (4) Renal failure Status: Acute (5) Alcoholic cirrhosis of liver with ascites Status: Acute Hospital Course - Lab Results Lab Results: Most Recent Lab Values WBC 9.1 K/uL (4.8-10.8) 04/16/17 10:23 RBC 4.18 Mil/uL (4.40-5.90) L 04/16/17 10:23 Hgb 10.8 g/dL (12.0-18.0) L 04/16/17 10:23 Hct 33.7 % (35.0-51.0) L 04/16/17 10:23 MCV 80.6 fL (80.0-94.0) 04/16/17 10:23 MCH 25.8 pg (27.0-31.0) L 04/16/17 10:23 MCHC 32.0 g/dL (33.0-37.0) L 04/16/17 10:23 RDW 17.2 % (11.5-14.5) H 04/16/17 10:23 Plt Count 238 K/uL (130-400) 04/16/17 10:23 MPV 9.1 fL (7.2-11.7) 04/16/17 10:23 Neut % (Auto) 73.4 % (50.0-75.0) 04/16/17 10:23 Lymph % (Auto) 13.2 % (20.0-40.0) L 04/16/17 10:23 Gage % (Auto) 11.3 % (0.0-10.0) H 04/16/17 10:23 Eos % (Auto) 1.5 % (0.0-4.0) 04/16/17 10:23 Baso % (Auto) 0.6 % (0.0-2.0) 04/16/17 10:23 Neut # 6.7 K/uL (1.8-7.0) 04/16/17 10:23 Lymph # 1.2 K/uL (1.0-4.3) 04/16/17 10:23 Gage # 1.0 K/uL (0.0-0.8) H 04/16/17 10:23 Eos # 0.1 K/uL (0.0-0.7) 04/16/17 10:23 Baso # 0.1 K/uL (0.0-0.2) 04/16/17 10:23 PT 13.9 SECONDS (9.7-12.2) H 04/16/17 10:23 INR 1.2 04/16/17 10:23 Sodium 136 mmol/L (132-148) 04/16/17 10:23 Potassium 4.6 mmol/L (3.6-5.2) 04/16/17 10:23 Chloride 90 mmol/L (98-107) L 04/16/17 10:23 Carbon Dioxide 34 mmol/L (22-30) H 04/16/17 10:23 Anion Gap 16 (10-20) 04/16/17 10:23 BUN 48 mg/dL (9-20) H 04/16/17 10:23 Creatinine 7.9 mg/dL (0.8-1.5) H* 04/16/17 10:23 Est GFR ( Amer) 9 04/16/17 10:23 Est GFR (Non-Af Amer) 7 04/16/17 10:23 POC Glucose (mg/dL) 241 mg/dL (65-110) H 04/20/17 16:37 Random Glucose 298 mg/dL (75-110) H 04/16/17 10:23 Calcium 7.1 mg/dl (8.6-10.4) L 04/16/17 10:23 Magnesium 1.6 mg/dL (1.6-2.3) 04/16/17 10:23 Total Bilirubin 0.7 mg/dL (0.2-1.3) 04/16/17 10:23 AST 14 U/L (17-59) L 04/16/17 10:23 ALT 21 U/L (21-72) 04/16/17 10:23 Alkaline Phosphatase 296 U/L (38-126) H 04/16/17 10:23 Total Protein 7.8 g/dL (6.3-8.3) 04/16/17 10:23 Albumin 3.5 g/dL (3.5-5.0) 04/16/17 10:23 Globulin 4.3 gm/dL (2.2-3.9) H 04/16/17 10:23 Albumin/Globulin Ratio 0.8 (1.0-2.1) L 04/16/17 10:23 - Hospital Course Hospital Course: A/P PATIENT IS SEEN AND EXAMINED AT THE BEDSIDE; HE IS FOR DISCHARGE TODAY S/P HD.BLOOD SUGAR WAS 66 [address] WITH PO INTAKE; BP WAS ELEVATED REPEAT POST BP MEDS GIVEN IS 148/89 ABDOMEN SOFT NO DRAINAGE NOTED FOLLOW UP WITH ME IN A WEEK AT HIS OFFICE ----CALL FOR APPOINTMENT CONTINUE TAKING YOUR HOME MED PER MED RECS CONTINUE HEMODIALYSIS PER USUAL SCHEDULE FLUID RESTRICTION TO 1 L PER GO TO EMERGENCY ROOM IF SYMPTOMS RETURN OR WORSENING DISCUSS WITH PATIENT WHO AGREE AND VERBALIZED UNDERSTANDING Discharge Exam - Head Exam Head Exam: NORMOCEPHALIC - Eye Exam Eye Exam: EOMI, Normal appearance, PERRL Pupil Exam: NORMAL ACCOMODATION, PERRL - ENT Exam ENT Exam: Mucous Membranes Moist - Respiratory Exam Respiratory Exam: Clear to PA & Lateral - Cardiovascular Exam Cardiovascular Exam: REGULAR RHYTHM, +S1, +S2 - GI/Abdominal Exam GI & Abdominal Exam: Normal Bowel Sounds - Rectal Exam Rectal Exam: Deferred Discharge Plan - Follow Up Plan Condition: STABLE Disposition: HOME/ ROUTINE Instructions: Heart Failure (DC), Dialysis Diet (DC), Abdominal Paracentesis ( DC), Ascites (DC), End Stage Kidney Disease (DC) Additional Instructions: FOLLOW UP WITH DR RIVERA IN A WEEK AT HIS OFFICE ----CALL FOR APPOINTMENT CONTINUE TAKING YOUR HOME MED PER MED RECS CONTINUE HEMODIALYSIS PER USUAL SCHEDULE FLUID RESTRICTION TO [address] RIVERA OR GO TO EMERGENCY ROOM IF SYMPTOMS RETURN OR WORSENING Referrals: Bruce Rivera MD [Staff Provider] -
--- NOTE | 2017-04-20 22:56 | CARD ---
APPROVED REPORT EKG Measurement Heart [id number] ID [id number] <Conclusion> Normal sinus rhythm Normal ECG
== END 2017-04-20 20:00 | disposition home or self-care (01) | DRG 432 ==
LOC: C.ER 09:49 → C.9E 12:10 → C.6T 13:47 → OBSVTOIN 16:06
PROVIDERS: ADMIT Internal Medicine; ATTEND Internal Medicine
PROC: 5A1D70Z Performance of Urinary Filtration, Intermittent, Less than 6 Hours Per Day (ICD-10-PCS; 2017-04-16)
PROC: 0W9G3ZZ Drainage of Peritoneal Cavity, Percutaneous Approach (ICD-10-PCS; principal; 2017-04-18)
DX: K70.31 Alcoholic cirrhosis of liver with ascites (principal); N18.6 End stage renal disease; I13.2 Hypertensive heart and chronic kidney disease with heart failure and with stage 5 chronic kidney disease, or end stage renal disease; E11.22 Type 2 diabetes mellitus with diabetic chronic kidney disease; E83.39 Other disorders of phosphorus metabolism; N25.81 Secondary hyperparathyroidism of renal origin; I50.9 Heart failure, unspecified; Z99.2 Dependence on renal dialysis; D64.9 Anemia, unspecified; H54.7 Unspecified visual loss